=== PATIENT | male | born 1990 | race Caucasian/White ===

== ENCOUNTER 2018-06-20 16:40 | Emergency (ER) | payer BC ==
[2018-06-20 18:51] VITALS: BP 154/87
--- NOTE | 2018-06-20 19:11 | UC ---
Lower Extremity/Ankle HPI - HPI Summary HPI Summary: 28 yo male injured righ ankle almost 2 weeks ago still swollen pt still with limp HX ORIF - History of Current Complaint Chief Complaint: UCLowerExtremity Stated Complaint: RIGHT ANKLE CONCERN Time Seen by Provider: 06/20/18 18:44 Hx Obtained From: Patient Onset/Duration: Sudden Onset, Lasting Weeks Severity Initially: Moderate Severity Currently: Mild Pain Intensity: 2 Pain Scale Used: 0-10 Numeric Aggravating Factor(s): Standing, Ambulation Alleviating Factor(s): Rest Able to Bear Weight: Yes Feet (Multiple View): 1 - surgical scar 2 - swelling - Allergies/Home Medications Allergies/Adverse Reactions: Allergies Allergy/AdvReac Type Severity Reaction Status Date / Time Sulfa (Sulfonamide Allergy Unknown Verified 06/20/18 18:38 Antibiotics) Reaction Details Home Medications: Home Medications Ibuprofen TAB* [Motrin TAB* 400 MG] 400 mg PO DAILY PRN 06/20/18 [History Confirmed 06/20/18] PMH/Surg Hx/FS Hx/Imm Hx Previously Healthy: Yes - Surgical History Surgical History: Yes Surgery Procedure, Year, and Place: right ankle surgery - Family History Known Family History: Positive: Hypertension Negative: Cardiac Disease, Diabetes - Social History Alcohol Use: Rare Substance Use Type: None Smoking Status (MU): Light Every Day Tobacco Smoker Review of Systems All Other Systems Reviewed And Are Negative: Yes Constitutional: Positive: Negative Skin: Positive: Negative Eyes: Positive: Negative ENT: Positive: Negative Respiratory: Positive: Negative Cardiovascular: Positive: Negative Gastrointestinal: Positive: Negative Genitourinary: Positive: Negative Motor: Positive: Negative Neurovascular: Positive: Negative Musculoskeletal: Positive: Decreased ROM - right ankle, Edema Neurological: Positive: Negative Psychological: Positive: Negative Physical Exam Triage Information Reviewed: Yes Appearance: Well-Appearing, No Pain Distress, Well-Nourished Vital Signs: Initial Vital Signs Temp 98.5 F 06/20/18 18:41 Pulse 104 06/20/18 18:41 Resp 22 06/20/18 18:41 BP 154/87 06/20/18 18:41 Pulse Ox 99 06/20/18 18:41 Vital Signs Reviewed: Yes Eyes: Positive: Conjunctiva Clear ENT: Positive: Hearing grossly normal. Negative: Nasal drainage, TMs normal, Trismus, Muffled voice, Hoarse voice Neck: Positive: Supple, Nontender Respiratory: Positive: Lungs clear, Normal breath sounds, No respiratory distress, No accessory muscle use Cardiovascular: Positive: RRR, No Murmur Musculoskeletal: Positive: ROM Limited @ - right ankle, Edema @ - distal 1/3 right lower leg, swollen interosseous Neurological Exam: Normal Psychological Exam: Normal Skin Exam: Normal Diagnostics - Radiology No standard instances Radiology Interpretation Completed By: Radiologist Summary of Radiographic Findings: hardware appears intact/ no acute fx Lower Extremity Course/Dx - Differential Dx/Diagnosis Provider Diagnosis: Injury of right ankle Discharge - Sign-Out/Discharge Documenting (check all that apply): Patient Departure All imaging exams completed and their final reports reviewed: No Studies - Discharge Plan Condition: Stable Disposition: HOME Patient Education Materials: Ankle Sprain (ED) Referrals: Rogelio Lewis MD [Medical Doctor] - As Soon As Possible Additional Instructions: I saw no fracture problems with your ankle hardware I suggest you see an orthopedist due to persistent swelling and decreased ROM It's possible you may have torn you introsseus membrane or scar tissue elevate ice twice daily - Billing Disposition and Condition Condition: STABLE Disposition: Home
== END 2018-06-20 19:59 | disposition home or self-care (01) ==
LOC: UCCORT 16:40
DX: S99.911A Unspecified injury of right ankle, initial encounter (principal); F17.290 Nicotine dependence, other tobacco product, uncomplicated; Z98.890 Other specified postprocedural states; Z88.2 Allergy status to sulfonamides; X58.XXXA Exposure to other specified factors, initial encounter; Y92.9 Unspecified place or not applicable
CPT/HCPCS: 99201; G0463